=== PATIENT | male | born 2000 | race Two or more races ===

== ENCOUNTER 2018-08-14 09:39 | Emergency (ER) | payer SELFPAY ==
[~2018-08-14] VITALS: Ht 175.3 cm; Wt 116.7 kg
[2018-08-14 09:52] VITALS: Ht 175.3 cm; Wt 116.7 kg
[2018-08-14 11:37] VITALS: BP 164/107
== END 2018-08-14 11:37 | disposition home or self-care (01) ==
LOC: ED 09:39
DX: L02.31 Cutaneous abscess of buttock (principal)
CPT/HCPCS: J2001